=== PATIENT | female | born 1965 | race Caucasian/White ===

== ENCOUNTER → 2018-03-24 07:40 | Outpatient (CLI) | payer OTHER ==
[~2018-03-24 07:40] MED LIST: CENTRUM SILVER1 EAC3 PO; FISH OIL 1,0001 CA1 PO; NEXIUM40 MG PO; PRAVACHOL80 MG PO; VITAMIN D10000 UNI1 PO
[2018-05-18 08:15] VITALS: BMI 27.0
== END | disposition home or self-care (01) ==
LOC: D.US 07:40
DX: R10.9 Unspecified abdominal pain (principal); R11.0 Nausea

== ENCOUNTER → 2018-04-16 08:58 | Outpatient (CLI) | payer OTHER ==
[~2018-04-16 08:58] MED LIST changes: +NORCO 10-325 TA1 TAB PO
[2018-05-18 08:15] VITALS: BMI 27.0
== END | disposition home or self-care (01) ==
LOC: D.NM 08:58
DX: R10.9 Unspecified abdominal pain (principal); R11.0 Nausea

== ENCOUNTER 2018-05-18 06:39 | Day surgery (SDC) | payer OTHER ==
[~2018-05-18] VITALS: Ht 167.6 cm; Wt 75.9 kg
--- NOTE | ~2018-05-18 | OP ---
PATIENT NAME: VIPUL NELSON MEDICAL RECORD: [id number] :61 LOCATION:D.OPS ADMISSION DATE: SURGEON: JORGE PHOENIX MD DATE OF OPERATION: 05/18/2018 PREOPERATIVE DIAGNOSES: 1. Biliary dyskinesia. 2. Gastroesophageal reflux disease. POSTOPERATIVE DIAGNOSES: 1. Biliary dyskinesia. 2. Gastroesophageal reflux disease. PROCEDURE: Laparoscopic cholecystectomy. SURGEON: Jorge Phoenix MD BEHAVIORAL HEALTH AIDE: Maryanne Ling APRN REPORT OF PROCEDURE: The patient's abdomen was prepped and draped in sterile fashion. A cutdown was made on the superior aspect of the umbilicus, 0 Vicryls were placed on the fascia bilaterally and the fascia was incised with a 15-blade. I then bluntly entered the peritoneal cavity and placed a 12-mm Jade port. Under direct visualization, a 5-mm trocar was placed in the epigastrium and two more 5-mm trocars were placed in the right subcostal region. The gallbladder was elevated. The cystic artery and cystic duct were dissected free and these were clipped proximally and distally and ligated in standard fashion. The gallbladder was taken off the liver bed using electrocautery and placed in the right upper quadrant. Any bleeding from the liver bed was then treated with electrocautery. At this point, the ports and insufflation were then removed and the gallbladder was taken out through the umbilicus. The umbilical fascia was closed with interrupted 0 Vicryls times 3. The wounds were then irrigated out with normal saline and infused with 10 mL of 0.25% Marcaine with epinephrine. The skin incisions were all closed with subcutaneous 5-0 Monocryl and dressed appropriately. COMPLICATIONS: None. CONDITION: Stable. ANESTHESIA: General endotracheal and local. BLOOD LOSS: Minimal. TRANSINT:[id number] Voice Confirmation ID: [id number] DOCUMENT ID: [id number] JORGE PHOENIX MD at 1714 CC: ZULMA RAMIREZ [id number] DICTATION DATE: 05/18/18 1006 VICE PRESIDENT PLANNING: 05/18/18 1015 [facility] 05/18/18 [place] [address]
[~2018-05-18 06:39] MED LIST changes: -NORCO 10-325 TA1 TAB PO
[2018-05-18 07:08] LABS: BASOPHILS 0.6 % (0-2); EOSINOPHILS 3.3 % (0-7); HEMATOCRIT 38.4 % (36.0-48.0); HEMOGLOBIN 13.1 g/dL (12-16); IMMATURE GRANULOCYTES 0.2 % (0-5); LYMPHOCYTES 27.4 % (15-50); MCH 31.5 pg (26.0-34.0); MCHC 34.1 g/dL (31.0-37.0); MCV 92.3 fL (80.0-100.0); MEAN PLATELET VOLUME 10.5 fL (7.4-10.4); MONOCYTES 6.2 % (2-11); NEUTROPHILS 62.3 % (40-80); PLATELET COUNT 244 10x3/uL (130-400); RBC 4.16 10x6/uL (4.00-5.40); RDW 12.9 % (11.5-14.5); WBC 6.5 10x3/uL (4.8-10.8)
[2018-05-18 07:20] LABS: CALC OSMOLALITY 283 mosm/kg (275-300); CALCIUM 9.3 mg/dL (8.5-10.1); CARBON DIOXIDE 28.1 mmol/L (21.0-32.0); CHLORIDE - SERUM 106 mmol/L (98-107); CREATININE - SERUM 0.7 mg/dL (0.6-1.3); GLUCOSE 92 mg/dL (74-106); POTASSIUM - SERUM 3.9 mmol/L (3.5-5.1); SODIUM 142 mmol/L (136-145); UREA NITROGEN 14 mg/dL (7-18); eGFR NON AFRICAN AMERICAN > 90 mL/min (90-120)
[2018-05-18 08:15] VITALS: BP 124/80; Ht 167.6 cm; Wt 75.9 kg
[2018-05-18] MEDS ORDERED: NORCO 10-325 TA1 TAB PO (09:55)
== END 2018-05-18 16:00 | disposition home or self-care (01) ==
LOC: D.OPS 06:39
PROVIDERS: Surgery
DX: K82.8 Other specified diseases of gallbladder (principal); K21.9 Gastro-esophageal reflux disease without esophagitis